=== PATIENT | male | born 1980 | race Caucasian/White ===

== ENCOUNTER 2017-03-02 16:37 | Emergency (ER) | payer OTHER ==
[2017-03-02 16:40] VITALS: BP 149/76; BMI 31.6
--- NOTE | 2017-03-02 17:10 | PDOC ---
[id number] 4d SENT BY URGENT CARE Time Seen by Provider: 03/02/17 16:53 History Source: Patient Exam Limitations: No Limitations - History of Present Illness Initial Comments: 03/02/17 17:12 37 yr old male presents to the ED for evaluation of fever, cough for the past 2 days and low O2 sat seen at urgent care concerning for pneumonia. 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 Patient denies hemoptysis, weight loss, night sweats, shortness of breath, palpitations, or weakness. Patient states has had similar symptoms in the past and normally is treated with antibiotics secondary to pneumonia. Timing/Duration: reports: other Severity: reports: moderate Possible Cause: Yes: occasional episodes Associated Symptoms: reports: cough, fever/chills Past History - Past Medical History Allergies/Adverse Reactions: Allergies Allergy/AdvReac Type Severity Reaction Status Date / Time Sulfa (Sulfonamide Allergy Mild redness Verified 03/02/17 16:38 Antibiotics) Home Medications: Ambulatory Orders Azithromycin [Zithromax 250mg Tablets -] 250 mg PO UTDICT #6 tab 03/02/17 Suicide Attempt (Hx): No Other medical history: DENIES. - Surgical History Lung Surgery: Yes (left) - Psycho/Social/Smoking Cessation Hx Anxiety: No Suicidal Ideation: No Smoking History: Former smoker Have you smoked in the past 12 months: No If you are a former smoker, when did you quit?: 2016 Information on smoking cessation initiated: No Hx Alcohol Use: No Drug/Substance Use Hx: No Substance Use Type: None Patient Lives Alone: No Lives with/in: spouse/SO Respiratory Specific PMHX - Complaint Specific PMHX Bronchitis: Yes Pneumonia: Yes Review of Systems - Review of Systems Able to Perform ROS?: Yes Constitutional: Yes: Fever HEENTM: No: Symptoms Reported Respiratory: Yes: Cough. No: SOB with Exertion Cardiac (ROS): No: Symptoms Reported ABD/GI: No: Symptoms Reported : No: Symptoms Reported Musculoskeletal: No: Symptoms Reported Integumentary: No: Symptoms Reported Neurological: No: Symptoms reported *Physical Exam - Vital Signs Last Vital Signs Temp Pulse Resp BP Pulse Ox 98.5 F 90 18 149/76 95 03/02/17 16:37 03/02/17 16:37 03/02/17 16:37 03/02/17 16:37 03/02/17 16:37 - Physical Exam General Appearance: Yes: Nourished, Appropriately Dressed. No: Apparent Distress HEENT: positive: EOMI, NABEEL, TMs Normal, Pharynx Normal. negative: Pale Conjunctivae Neck: positive: Supple Respiratory/Chest: positive: Lungs Clear, Normal Breath Sounds. negative: Respiratory Distress, Accessory Muscle Use Cardiovascular: positive: Regular Rhythm, Regular Rate. negative: Murmur Gastrointestinal/Abdominal: positive: Soft. negative: Tenderness Extremity: positive: Normal Capillary Refill Integumentary: positive: Normal Color, Warm, Moist Neurologic: positive: Motor Strength 5/5 (ambulatory) Medical Decision Making - Medical Decision Making 03/02/17 17:15 Patient sent over from urgent care clinic secondary to O2 sat of 91% along with complaints of cough and fever. Patient states had a MAXIMUM TEMPERATURE of 102.9 this morning and took Tylenol with good effect. Patient states X cigarette smoker and currently uses E cigarettes but also states history of left lung sx 20+ years ago secondary to lung nodules. Patient concerning for pneumonia versus bronchitis versus influenza. Patient ordered for influenza swab and chest x-ray 03/02/17 17:48 Chest x-ray shows early right lower lobe infiltrate. Influenza swab negative. Patient be discharged home with antibiotics and recommendations to continue Motrin or Tylenol for fever *DC/Admit/Observation/Transfer Diagnosis at time of Disposition: Pneumonia Qualifiers: Pneumonia type: due to unspecified organism Laterality: right Lung location: lower lobe of lung Qualified Code(s): J18.1 - Lobar pneumonia, unspecified organism - Discharge Dispostion Disposition: HOME Condition at time of disposition: Good - Prescriptions Prescriptions: Azithromycin [Zithromax 250mg Tablets -] 250 mg PO UTDICT #6 tab - Referrals Referrals: William Gonzalez MD [Primary Care Provider] - - Patient Instructions Printed Discharge Instructions: DI for Pneumonia -- Adult Additional Instructions: Please take antibiotics until completed take Motrin or Tylenol for fever or discomfort. Please of the PCP as needed. otherwise return to ED if your symptoms worsen despite above recommendations. - Post Discharge Activity Work/School Note: Back to Work
[2017-03-02 17:52] VITALS: PULSE 80; TEMP 98.9
== END 2017-03-02 17:57 | disposition home or self-care (01) ==
LOC: SUPCPDRO 16:37 → JERFT 16:37
DX: J18.1 Lobar pneumonia, unspecified organism (principal); Z90.2 Acquired absence of lung [part of]
CPT/HCPCS: 71020-TC; 87804; 99281-25

== ENCOUNTER 2017-12-13 18:57 | Emergency (ER) | payer OTHER ==
[2017-12-13 19:16] VITALS: BP 119/76; PULSE 66; TEMP 98.4; BMI 27.0
--- NOTE | 2017-12-13 20:17 | PDOC ---
History of Present Illness - General Chief Complaint: Pain, Acute Stated Complaint: LEFT SIDE NUMBNESS Time Seen by Provider: 12/13/17 19:43 - History of Present Illness Initial Comments: 12/13/17 20:15 CHIEF COMPLAINT: left arm weakness HISTORY OF PRESENT ILLNESS: 37 yo M presents to [facility] with left arm weakness since this morning. Patient states he went to sleep on his couch last night and slept on his left shoulder. When he woke up, he felt some numbness and tingling in his left arm "but didn't think much of it and went back to sleep." When he woke up again, No recent travel or sick contacts. PAST MEDICAL HISTORY: Denies past medical history FAMILY HISTORY: Denies SOCIAL HISTORY: Denies tobacco, alcohol, illicit drug use. SURGICAL HISTORY: Denies ALLERGIES: sulfa REVIEW OF SYSTEMS General/Constitutional: Denies fever or chills. Denies weakness, weight change. HEENT: Denies change in vision. Denies ear pain or discharge. Denies sore throat. Cardiovascular: Denies chest pain or shortness of breath. Respiratory: Denies cough, wheezing, or hemoptysis. Gastrointestinal: Denies nausea, vomiting, diarrhea or constipation. Denies rectal bleeding. Genitourinary: Denies dysuria, frequency, or change in urination. Musculoskeletal: Denies joint or muscle swelling or pain. Denies neck or back pain. Skin and breasts: Denies rash or easy bruising. Neurologic: Denies headache, vertigo, loss of consciousness, or loss of sensation. Psychiatric: Denies depression or anxiety. Endocrine: Denies increased thirst. Denies abnormal weight change. Hematologic/Lymphatic: Denies anemia, easy bleeding, or history of blood clots. Allergic/Immunologic: Denies hives or skin allergy. Denies latex allergy. PHYSICAL EXAM General Appearance: Well-appearing, appropriately dressed. No apparent distress , no intoxication. HEENT: EOMI, PERRLA, normal ENT inspection, normal voice, TMs normal, pharynx normal. No conjunctival pallor. No photophobia, scleral icterus. Neck: Supple. Trachea midline. No tenderness, rigidity, carotid bruit, stridor , lymphadenopathy, or thyromegaly. Respiratory/Chest: Lungs CTAB. No shortness of breath, chest tenderness, respiratory distress, accessory muscle use. No crackles, rales, rhonchi, stridor , wheezing, dullness Cardiovascular: RRR. S1, S2. No JVD, murmur, bradycardia, tachycardia. Vascular Pulses: Dorsalis-Pedis (R): 2+, Dorsalis-Pedis (L): 2+ Gastrointestinal/Abdominal: Normal bowel sounds. Abdomen soft, non-distended. No tenderness or rebound tenderness. No organomegaly, pulsatile mass, guarding , hernia, hepatomegaly, splenomegaly. Lymphatic: No adenopathy, tenderness. Musculoskeletal/Extremities: Normal inspection. FROM of all extremities, normal capillary refill. Pelvis Stable. No CVA tenderness. No tenderness to extremities, pedal edema, swelling, erythema or deformity. Integumentary: Appropriate color, dry, warm. No cyanosis, erythema, jaundice or rash Neurologic: sheet metal erector II-XII intact. Fully oriented, alert. Appropriate mood/affect. Motor strength 5/5. No appreciable EOM palsy, facial droop or sensory deficit. 12/13/17 20:24 Past History - Past Medical History Allergies/Adverse Reactions: Allergies Allergy/AdvReac Type Severity Reaction Status Date / Time Sulfa (Sulfonamide Allergy Mild redness Verified 12/13/17 19:12 Antibiotics) Home Medications: Ambulatory Orders Alprazolam [Xanax] 2 mg PO DAILY 12/13/17 NK [No Known Home Medication] 12/13/17 - Surgical History Lung Surgery: Yes (left) - Suicide/Smoking/Psychosocial Hx Smoking History: Never smoked Have you smoked in the past 12 months: No If you are a former smoker, when did you quit?: 2016 Hx Alcohol Use: No Drug/Substance Use Hx: No Substance Use Type: None *Physical Exam - Vital Signs Last Vital Signs Temp Pulse Resp BP Pulse Ox 98.4 F 66 16 119/76 99 12/13/17 19:13 12/13/17 19:13 12/13/17 19:13 12/13/17 19:13 12/13/17 19:13 Medical Decision Making - Medical Decision Making 12/13/17 20:52 37 yo M presents to [facility] with sudden onset left sided arm weakness s/p "sleeping on my couch funny on my left shoulder." Discussed case with on-call MD Mcghee, 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 Patient left arm placed in sling and will f/u with Dr. Mcghee for further evaluation. *DC/Admit/Observation/Transfer Diagnosis at time of Disposition: Cervical nerve root compression - Discharge Dispostion Disposition: HOME Condition at time of disposition: Stable Admit: No - Referrals Referrals: Davion Mcghee MD [Staff Physician] - - Patient Instructions Additional Instructions: Please keep the sling to your affected arm. Your symptoms will likely improve within 5-7 days, but you must follow up with Dr. Mcghee this week for further evaluation. If you develop ANY fever, chills, neck pain, dizziness, blurred vision, altered mental status, difficulty walking or speaking, or any new or worsening symptoms, please return to the ER immediately. - Post Discharge Activity
== END 2017-12-13 20:40 | disposition home or self-care (01) ==
LOC: JERFT 18:57
DX: G54.2 Cervical root disorders, not elsewhere classified (principal)
CPT/HCPCS: 99281-25